=== PATIENT | female | born 1950 | race Caucasian/White ===

== ENCOUNTER 2023-05-02 12:31 | Inpatient (IN) | payer OTHER ==
[~2023-05-02] VITALS: Ht 167.6 cm; Wt 77.4 kg
[2023-05-02 12:31] VITALS: BP_SYST 153; PULSE 80; RESP 20; TEMP 98.2; O2SAT 92
[2023-05-02] MEDS ORDERED: LORazepam 2 MG/ML VIAL ONE (12:37)
[2023-05-02] MEDS ORDERED: FLUMAZENIL 0.1 MG/ML IVP ONE (13:01)
[2023-05-02] MEDS: LORazepam 2 MG/ML VIAL IVP ONE (13:10)
[2023-05-02 13:30] LABS: BASOPHILS % (AUTO) 0.2 % (0.0-2.0); HEMATOCRIT 30.9 % (36-48); HEMOGLOBIN 10.2 g/dL (12.0-16.0); LYMPHOCYTES # (AUTO) 0.7 K/uL (1.0-5.5); MEAN CORPUSCULAR HEMOGLOBIN 28 pg (27-31); MEAN CORPUSCULAR HGB CONC 33 % (32-36); MEAN CORPUSCULAR VOLUME 84 fL (79.0-98.0); MONOCYTES # (AUTO) 0.4 K/uL (0.0-1.0); MONOCYTES % (AUTO) 9.7 % (1.7-9.3); NEUTROPHILS # (AUTO) 3.3 K/uL (1.8-7.7); NEUTROPHILS % (AUTO) 74.1 % (40.0-70.0); WHITE BLOOD COUNT (AUTO) 4.5 K/uL (4.8-10.8)
[2023-05-02 13:54] LABS: INR 1.6 (0.8-1.2); PROTHROMBIN TIME 16.2 SECS (9.5-12.5)
[2023-05-02 13:59] LABS: PLATELET COUNT (AUTO) 68 K/uL (130-430)
[2023-05-02 14:10] LABS: ALANINE AMINOTRANSFERASE 57 U/L (12-78); ALBUMIN 2.6 g/dL (3.4-4.8); ANION GAP 8 (5-15); ASPARTATE AMINOTRANSFERASE 89 U/L (10-37); CALCIUM 8.8 mg/dL (8.4-11.0); CARBON DIOXIDE 25 mmol/L (23-29); CHLORIDE 107 mmol/L (98-107); CREATININE 2.35 mg/dL (0.55-1.30); GLUCOSE 102 mg/dL (74-106); POTASSIUM 3.2 mmol/L (3.5-5.1); SODIUM SERUM 140 mmol/L (136-145); TOTAL BILIRUBIN 0.9 mg/dL (0.0-1.0); TOTAL PROTEIN, SERUM 6.1 g/dL (6.4-8.3); UREA NITROGEN, BLOOD 50 mg/dL (8-21)
[2023-05-02 14:12] LABS: BILIRUBIN,DIRECT 0.4 mg/dL (0.0-0.3); CREATINE KINASE, TOTAL 799 U/L (26-192)
[2023-05-02 14:15] LABS: ALCOHOL, BLOOD < 3 mg/dL (<10)
[2023-05-02 14:37] LABS: CKMB RELATIVE INDEX 1.5 (0.0-2.9); CREATINE KINASE MB 12.2 ng/mL (0-3.6)
[2023-05-02 14:38] LABS: BILIRUBIN,URINE NEGATIVE (NEGATIVE); BLOOD, URINE TRACE (NEGATIVE); CLARITY/URINE SL CLOUDY (CLEAR); COLOR,URINE YELLOW (YELLOW); GLUCOSE,URINE NEGATIVE (NEGATIVE); KETONES,URINE NEGATIVE (NEGATIVE); LEUKOCYTE ESTERASE ,URINE 1+ (NEGATIVE); NITRITE, URINE POSITIVE (NEGATIVE); PH,URINE 5.5 (5.0-8.0); PROTEIN URINE TRACE (NEGATIVE); UROBILINOGEN,URINE 0.2 (0.2-1.0)
[2023-05-02] MEDS: NACL 0.9% 1,000 ML IV ONE (14:45)
[2023-05-02 15:01] LABS: BARBITURATE, URINE NEGATIVE (NEG <=200); BENZODIAZEPINE, URINE NEGATIVE (NEG <=150); CANNABINOID, URINE NEGATIVE (NEG <=50); COCAINE, URINE NEGATIVE (NEG <=150); METHAMPHETAMINES SCREEN,URINE NEGATIVE (NEG <=500); OPIATE, URINE NEGATIVE (NEG <=100); PHENCYCLIDINE SCREEN,URINE NEGATIVE (NEG <=25); UR TRICYCLIC ANTIDEPRESSANTS NEGATIVE (NEG <=300); URINE AMPHETAMINE NEGATIVE (NEG <=500); URINE METHADONE NEGATIVE (NEG <=200); URINE OXYCODONE SCREEN NEGATIVE (NEG <=100)
[2023-05-02 15:16] LABS: BACTERIA,URINE MODERATE /HPF (None Seen); HYALINE CASTS, URINE 0-10 /LPF (None Seen)
[2023-05-02] MEDS ORDERED: ATEN-167 PO (16:03)
[2023-05-02] MEDS ORDERED: SIMV-345 PO (16:03)
[2023-05-02] MEDS ORDERED: OMEP20TA20 PO (16:03)
[2023-05-02] MEDS ORDERED: LISI20TA PO (16:03)
[2023-05-02] MEDS ORDERED: CHOL400T12 PO (16:03)
[2023-05-02] MEDS ORDERED: CALC-17 PO (16:03)
[2023-05-02] MEDS ORDERED: OXYB-31 PO (16:03)
[2023-05-02] MEDS ORDERED: BACL10TA PO (16:03)
[2023-05-02] MEDS ORDERED: cefTRIAXone 1 GM VIAL ONE (16:22)
[2023-05-02] MEDS: cefTRIAXone 1 GM in D5W 50 ML IV ONE (16:28)
[2023-05-03 00:04] VITALS: BP_SYST 114; PULSE 65; RESP 18; TEMP 97
[2023-05-03] MEDS: LORazepam 2 MG/ML VIAL IVP PRN (03:00)
[2023-05-03 03:30] VITALS: BP_SYST 129; PULSE 89
[2023-05-03] MEDS ORDERED: NALOXONE HCL 0.4 MG/ML AMP (NARCAN) IVP PRN ×2 (09:30)
[2023-05-03] MEDS ORDERED: LORazepam 2 MG/ML VIAL IVP PRN (09:30)
[2023-05-03] MEDS ORDERED: lisinopriL 20 MG TABLET PO SCH (09:30)
[2023-05-03] MEDS ORDERED: BACLOFEN 10 MG TABLET PO PRN (09:30)
[2023-05-03] MEDS ORDERED: ACETAMINOPHEN 325 MG TABLET PO PRN ×2 (09:30→11:30)
[2023-05-03] MEDS ORDERED: NON-FORMULARY MEDICATION (Omeprazole (Prilosec Otc) 1 TAB) PO SCH (09:30)
[2023-05-03] MEDS ORDERED: ONDANSETRON HCL 4 MG/2 ML VIAL IVP PRN (09:30)
[2023-05-03] MEDS ORDERED: HYDROcodone/ACETAMIN 5-325 MG TAB (NORCO/ VICODIN) PO PRN (09:30)
[2023-05-03] MEDS ORDERED: IPRATROPIUM BROM 0.5 MG/2.5 ML VIAL.NEB (ATROVENT) INH PRN (09:30)
[2023-05-03] MEDS ORDERED: CHOLECALCIFEROL PO SCH (09:30)
[2023-05-03] MEDS ORDERED: ALBUTEROL SULFATE 0.083% 2.5 MG/3 ML VIAL.NEB INH PRN (09:30)
[2023-05-03 09:38] VITALS: BP_SYST 114; PULSE 65; O2SAT 97
[2023-05-03 10:39] LABS: BASOPHILS % (AUTO) 0.2 % (0.0-2.0); EOSINOPHILS # (AUTO) 0.1 K/uL (0.0-0.4); EOSINOPHILS % (AUTO) 1.5 % (0.0-4.0); LYMPHOCYTES # (AUTO) 0.7 K/uL (1.0-5.5); LYMPHOCYTES % (AUTO) 17.1 % (20.5-51.5); MEAN CORPUSCULAR HEMOGLOBIN 28 pg (27-31); MEAN CORPUSCULAR HGB CONC 33 % (32-36); MEAN CORPUSCULAR VOLUME 83 fL (79.0-98.0); MONOCYTES # (AUTO) 0.4 K/uL (0.0-1.0); MONOCYTES % (AUTO) 10.4 % (1.7-9.3); NEUTROPHILS # (AUTO) 2.8 K/uL (1.8-7.7); NEUTROPHILS % (AUTO) 70.8 % (40.0-70.0); PLATELET COUNT (AUTO) 77 K/uL (130-430); RED BLOOD CELL COUNT(AUTO) 3.97 MIL/uL (4.2-6.2)
[2023-05-03 10:45] LABS: ERYTHROCYTE SEDIMENTATION RATE 27 MM/HR (0-20)
[2023-05-03 10:58] LABS: ALANINE AMINOTRANSFERASE 70 U/L (12-78); ALBUMIN 2.7 g/dL (3.4-4.8); ANION GAP 8 (5-15); ASPARTATE AMINOTRANSFERASE 86 U/L (10-37); CALCIUM 8.9 mg/dL (8.4-11.0); CARBON DIOXIDE 28 mmol/L (23-29); CHLORIDE 111 mmol/L (98-107); CHOLESTEROL 114 mg/dL (<200); CREATINE KINASE, TOTAL 492 U/L (26-192); CREATININE 0.82 mg/dL (0.55-1.30); GLUCOSE 93 mg/dL (74-106); HDL CHOLESTEROL 39 mg/dL (>55); PHOSPHORUS 2.5 mg/dL (2.7-4.5); POTASSIUM 3.4 mmol/L (3.5-5.1); SODIUM SERUM 147 mmol/L (136-145); TOTAL BILIRUBIN 1.2 mg/dL (0.0-1.0); TOTAL PROTEIN, SERUM 6.7 g/dL (6.4-8.3); TRIGLYCERIDES 86 mg/dL (30-150); UREA NITROGEN, BLOOD 33 mg/dL (8-21)
[2023-05-03 11:19] LABS: CKMB RELATIVE INDEX 1.6 (0.0-2.9); CREATINE KINASE MB 7.8 ng/mL (0-3.6)
[2023-05-03 12:30] VITALS: BP_SYST 122; PULSE 80; RESP 17; TEMP 97.6; O2SAT 94
[2023-05-03] MEDS: ATENOLOL 50 MG TABLET (TENORMIN) PO ONE (12:43)
[2023-05-03] MEDS: D5/0.45 NS 1,000 ML IV SCH (12:50)
[2023-05-03] MEDS: cefTRIAXone 1 GM IVPB PREMIX 50 ML IV ONE (13:03)
[2023-05-03] MEDS ORDERED: IBUP-1969 PO (13:33)
[2023-05-03] MEDS ORDERED: GADOTERATE MEGLUMINE 7.5 MMOL/15 ML VIAL IV ONE (14:02)
[2023-05-03 16:29] VITALS: BP_SYST 119; PULSE 78; RESP 16; TEMP 98.1; O2SAT 93
[2023-05-03] MEDS: oxyBUTYnin chloride 5 MG TABLET PO SCH (16:36)
[2023-05-03 20:00] VITALS: BP_SYST 104; PULSE 94; RESP 18; TEMP 97.8; O2SAT 95
[2023-05-03] MEDS: CALCIUM CARBONATE/VITAMIN D3 1 TAB TABLET PO SCH (20:58)
[2023-05-03] MEDS ORDERED: SIMVASTATIN 40 MG TABLET PO SCH (21:00)
[2023-05-04 00:55] VITALS: BP_SYST 115; PULSE 83; RESP 19; TEMP 97.9
[2023-05-04 04:49] LABS: BASOPHILS % (AUTO) 0.4 % (0.0-2.0); EOSINOPHILS # (AUTO) 0.1 K/uL (0.0-0.4); EOSINOPHILS % (AUTO) 3.2 % (0.0-4.0); HEMATOCRIT 31.2 % (36-48); HEMOGLOBIN 10.4 g/dL (12.0-16.0); LYMPHOCYTES # (AUTO) 0.8 K/uL (1.0-5.5); LYMPHOCYTES % (AUTO) 26.4 % (20.5-51.5); MEAN CORPUSCULAR HEMOGLOBIN 28 pg (27-31); MEAN CORPUSCULAR HGB CONC 33 % (32-36); MEAN CORPUSCULAR VOLUME 84 fL (79.0-98.0); MONOCYTES # (AUTO) 0.4 K/uL (0.0-1.0); NEUTROPHILS # (AUTO) 1.7 K/uL (1.8-7.7); PLATELET COUNT (AUTO) 75 K/uL (130-430); WHITE BLOOD COUNT (AUTO) 3.1 K/uL (4.8-10.8)
[2023-05-04 05:01] LABS: ALANINE AMINOTRANSFERASE 63 U/L (12-78); ALBUMIN 2.3 g/dL (3.4-4.8); ANION GAP 5 (5-15); ASPARTATE AMINOTRANSFERASE 58 U/L (10-37); CALCIUM 8.6 mg/dL (8.4-11.0); CARBON DIOXIDE 30 mmol/L (23-29); CHLORIDE 109 mmol/L (98-107); GLUCOSE 119 mg/dL (74-106); PHOSPHORUS 1.9 mg/dL (2.7-4.5); POTASSIUM 3.3 mmol/L (3.5-5.1); SODIUM SERUM 144 mmol/L (136-145); TOTAL PROTEIN, SERUM 6.1 g/dL (6.4-8.3); UREA NITROGEN, BLOOD 22 mg/dL (8-21)
[2023-05-04 07:57] VITALS: BP_SYST 125; PULSE 89; RESP 18; TEMP 97.4; O2SAT 94
[2023-05-04] MEDS: PANTOPRAZOLE SODIUM 40 MG TAB PO SCH (08:18)
[2023-05-04] MEDS: CHOLECALCIFEROL (VITAMIN D-3) 400 UNIT TABLET PO SCH (08:18)
[2023-05-04] MEDS: ATENOLOL 50 MG TABLET (TENORMIN) PO SCH (08:19)
[2023-05-04] MEDS: cefTRIAXone 1 GM IVPB PREMIX 50 ML IV SCH (08:25)
[2023-05-04 11:30] VITALS: BP_SYST 130; PULSE 71; RESP 12; TEMP 96.9; O2SAT 93
[2023-05-04] MEDS: K PHOS 15 MM in NS 250 ML IV ONE (13:57)
[2023-05-04 18:03] VITALS: BP_SYST 125; PULSE 75; RESP 26; TEMP 97; O2SAT 88
[2023-05-04 20:00] VITALS: BP_SYST 130; PULSE 72; RESP 16; TEMP 97.8; O2SAT 94
[2023-05-04] MEDS: HYDROcodone/ACETAMIN 10-325 MG TAB PO PRN (21:14)
[2023-05-04] MEDS: ASPIRIN 81 MG TAB.CHEW PO SCH (21:15)
[2023-05-05 02:00] VITALS: BP_SYST 132; PULSE 75; RESP 16; TEMP 97.2; O2SAT 98
[2023-05-05 04:00] VITALS: BP_SYST 135; PULSE 75; RESP 16; TEMP 98.1; O2SAT 98
[2023-05-05 05:17] LABS: ERYTHROCYTE SEDIMENTATION RATE 12 MM/HR (0-20)
[2023-05-05 06:03] LABS: BASOPHILS % (AUTO) 0.4 % (0.0-2.0); EOSINOPHILS # (AUTO) 0.2 K/uL (0.0-0.4); EOSINOPHILS % (AUTO) 4.6 % (0.0-4.0); HEMATOCRIT 32.9 % (36-48); HEMOGLOBIN 10.7 g/dL (12.0-16.0); LYMPHOCYTES # (AUTO) 1.4 K/uL (1.0-5.5); LYMPHOCYTES % (AUTO) 34.2 % (20.5-51.5); MEAN CORPUSCULAR HEMOGLOBIN 28 pg (27-31); MEAN CORPUSCULAR HGB CONC 33 % (32-36); MEAN CORPUSCULAR VOLUME 85 fL (79.0-98.0); MONOCYTES # (AUTO) 0.6 K/uL (0.0-1.0); MONOCYTES % (AUTO) 15.1 % (1.7-9.3); NEUTROPHILS # (AUTO) 1.9 K/uL (1.8-7.7); NEUTROPHILS % (AUTO) 45.7 % (40.0-70.0); PLATELET COUNT (AUTO) 92 K/uL (130-430); RED BLOOD CELL COUNT(AUTO) 3.87 MIL/uL (4.2-6.2); RED CELL DISTRIBUTION WIDTH 16.2 % (9.0-15.0)
[2023-05-05 06:11] LABS: ALANINE AMINOTRANSFERASE 52 U/L (12-78); ALBUMIN 2.3 g/dL (3.4-4.8); ANION GAP 5 (5-15); ASPARTATE AMINOTRANSFERASE 46 U/L (10-37); CALCIUM 8.5 mg/dL (8.4-11.0); CARBON DIOXIDE 30 mmol/L (23-29); CHLORIDE 108 mmol/L (98-107); GLUCOSE 102 mg/dL (74-106); PHOSPHORUS 3.1 mg/dL (2.7-4.5); POTASSIUM 4.1 mmol/L (3.5-5.1); SODIUM SERUM 143 mmol/L (136-145); TOTAL BILIRUBIN 0.7 mg/dL (0.0-1.0); TOTAL PROTEIN, SERUM 6.1 g/dL (6.4-8.3); UREA NITROGEN, BLOOD 20 mg/dL (8-21)
[2023-05-05 07:23] LABS: WHITE BLOOD COUNT (AUTO) 4.1 K/uL (4.8-10.8)
[2023-05-05 07:52] VITALS: BP_SYST 121; PULSE 85; RESP 20; TEMP 98.2; O2SAT 98
[2023-05-05] MEDS ORDERED: LEVO-62 PO (09:35)
[2023-05-05 12:36] VITALS: BP_SYST 100; PULSE 76; RESP 17; TEMP 97.7; O2SAT 93
== END 2023-05-05 14:00 | disposition home or self-care (01) | DRG 871 ==
LOC: SED 12:31 → STU 15:16 → SMU 05-04 16:14
PROVIDERS: ADMIT Preventive Medicine Preventive Medicine/Occupational Environmental Medicine; ATTEND Preventive Medicine Preventive Medicine/Occupational Environmental Medicine
DX: A41.9 Sepsis, unspecified organism (principal); E43 Unspecified severe protein-calorie malnutrition; G93.41 Metabolic encephalopathy; M62.82 Rhabdomyolysis; N39.0 Urinary tract infection, site not specified; D61.818 Other pancytopenia; N17.9 Acute kidney failure, unspecified; E87.0 Hyperosmolality and hypernatremia; D35.2 Benign neoplasm of pituitary gland; B96.20 Unspecified Escherichia coli [E. coli] as the cause of diseases classified elsewhere; B96.89 Other specified bacterial agents as the cause of diseases classified elsewhere; N32.81 Overactive bladder; E87.6 Hypokalemia; E78.5 Hyperlipidemia, unspecified; E83.39 Other disorders of phosphorus metabolism; E88.09 Other disorders of plasma-protein metabolism, not elsewhere classified; F03.90 Unspecified dementia, unspecified severity, without behavioral disturbance, psychotic disturbance, mood disturbance, and anxiety; I10 Essential (primary) hypertension; D69.6 Thrombocytopenia, unspecified; I25.10 Atherosclerotic heart disease of native coronary artery without angina pectoris; Z86.73 Personal history of transient ischemic attack (TIA), and cerebral infarction without residual deficits; Z98.61 Coronary angioplasty status; Z68.27 Body mass index [BMI] 27.0-27.9, adult
CPT/HCPCS: 36415; 70450-TC; 70496; 70498; 70553; 71045; 80048; 80053; 80061; 80076; 80307; 81000; 81001; 81015; 82550; 82553; 83605; 83735; 84100; 84484; 85025; 85610; 85651; 85730; 87040; 87086; 87186; 92610-GN; 93005; 93306; 95816; 96361; 96365; 96375; 97110-GO; 97112-GP; 97116-GP; 97530-GO; 97530-GP; 97535-GO; 99291; A9575; G0378; G0482; J0696; J2060; J3490; J7050